=== PATIENT | male | born 1940 | race Asian ===

== ENCOUNTER → 2021-01-23 | Outpatient (CLI) | payer MEDICARE, OTHER ==
[~2021-01-23] VITALS: Ht 175.3 cm; Wt 76.8 kg
[~2021-01-23] MED LIST: ACET-2744 PO; ASPI-1444 PO; CLOP75TA60 PO; GLIP5 PO; ISOS60TA77 PO; LEVO88TA4 PO; LOSA50TA37 PO; METF-960 PO; METO25XL PO; OMEG-11 PO; ROSU20TA23 PO; TERA2CAP10 PO; VITAD5000 PO
[2021-01-23 15:23] VITALS: BP 149/64
== END | disposition home or self-care (01) ==
LOC: EDSTATUS 10:40 → SRCNTR 10:50
PROVIDERS: ATTEND Internal Medicine Critical Care Medicine
DX: I10 Essential (primary) hypertension (principal); E78.5 Hyperlipidemia, unspecified; I25.10 Atherosclerotic heart disease of native coronary artery without angina pectoris; Z95.1 Presence of aortocoronary bypass graft
CPT/HCPCS: G0463